=== PATIENT | female | born 1980 ===

== ENCOUNTER 2017-11-27 08:22 | Day surgery (SDC) | payer MEDICAID, OTHER ==
[~2017-11-27 08:22] MED LIST: Bupivacaine HCl 0.25% PF (10 ml) Inj ONE; Iohexol 240 (50 ml) ONE; Lidocaine Hydrochloride 5 ML INJ ONE; MethylPREDNISolone Depo 40 mg/ml Inj ONE
[2017-11-27] MEDS ORDERED: Midazolam 2 MG/2 ML VIAL ONE (09:51)
[2017-11-27] MEDS ORDERED: Propofol 10 mg/ml Inj (20 ML) ONE (10:00)
[2017-11-27 11:08] VITALS: TEMP 97.5; O2SAT 96
[2017-11-27 12:10] VITALS: BP 96/60; PULSE 69; RESP 16
--- NOTE | 2017-11-27 12:24 | OP ---
PROCEDURE DATE: PREOPERATIVE DIAGNOSIS: Thoracic radiculopathy, thoracic herniated disk. POSTOPERATIVE DIAGNOSIS: Thoracic radiculopathy, thoracic herniated disk. PROCEDURE: Thoracic epidural steroid injection T9-T10. X-RAY: Fluoroscopy of the spine. ANESTHESIA: MAC with local sedation. SURGEON: Nohemi Pugh MD COMPLICATIONS: None. BLOOD LOSS: 1 mL. BRIEF HISTORY AND INDICATIONS: The patient with thoracic pain. The patient is here for thoracic epidural steroid injection under fluoroscopic guidance. PROCEDURE IN DETAIL: The patient's chart was reviewed, informed consent was obtained. The patient was brought back to the procedure room, placed in prone position. Routine monitors were applied. The patient was prepped and draped in sterile fashion. Under fluoroscopy, it was examined and space was taken in AP view. A 27-gauge needle was used to infiltrate the skin subcutaneously with lidocaine 1% 2 mL subsequently. A 20-gauge epidural Tuohy needle was used to advance into the laminar space with loss of resistance technique to air. The needle position was confirmed in AP and lateral views. Omnipaque dye was injected showing good epidurogram. Subsequently, Depo-Medrol 80 mg with 2 mL of 1% lidocaine preservative-free was injected with intermittent aspiration. No heme or CSF was aspirated throughout. No paresthesias were listed throughout. The patient tolerated the procedure well. Vital signs remained stable. The patient reported reduction in pain post procedure. No sensory or motor deficits were noted. DISPOSITION: The patient was taken to the recovery room in stable condition. The patient was given instructions to follow up in two weeks and was discharged in stable condition. No events or complications. Nohemi Pugh MD
--- NOTE | 2017-11-27 13:49 | RAD ---
PROCEDURE: Intraoperative Fluoroscopy. HISTORY: THORACIC HERNIATED DISC FINDINGS: Fluoroscopic assistance was provided for thoracic epidural. Please refer to the operative report from MARY JO Pruitt. Total fluoroscopic time (continuous mode) utilized during the procedure: 13.0 seconds. Total exam DLP: 2.72 (mGy)
== END 2017-11-27 11:02 | disposition home or self-care (01) ==
LOC: C.SDS 08:22
PROVIDERS: ATTEND Anesthesiology Pain Medicine
DX: M51.14 Intervertebral disc disorders with radiculopathy, thoracic region (principal)
CPT/HCPCS: 62321; 76000; J1030; J2250; J2704; J3010; Q9966

== ENCOUNTER 2019-02-11 11:06 | Emergency (ER) | payer MEDICAID, OTHER ==
[2019-02-11 11:17] VITALS: RESP 20
[2019-02-11] MEDS ORDERED: Albuterol 0.083% Inhal Sol (2.5 mg/3 mL) UD IH STA ×2 (11:45→12:53)
[2019-02-11] MEDS ORDERED: Albuterol 0.083% Inhal Sol (2.5 mg/3 mL) UD ONE ×2 (11:57→13:33)
[2019-02-11 12:12] LABS: BASO # 0.1 K/uL (0.0-0.2); BASO % 0.7 % (0.0-2.0); EOS # 0.1 K/uL (0.0-0.7); EOS % 0.5 % (0.0-4.0); HEMOGLOBIN 16.3 g/dL (11.0-16.0); LYMPH # 3.1 K/uL (1.0-4.3); LYMPH % 30.5 % (20.0-40.0); MEAN CELL VOLUME 92.8 fL (81.0-99.0); MEAN CORPUSCULAR HEMOGLOBIN 31.3 pg (27.0-31.0); MEAN CORPUSCULAR HGB CONC 33.8 g/dL (33.0-37.0); MONO # 0.6 K/uL (0.0-0.8); MONO % 6.1 % (0.0-10.0); NEUT # 6.3 K/uL (1.8-7.0); NEUT % 62.2 % (50.0-75.0); NRBC % 0.1 % (0.0-2.0); RBC 5.22 Mil/uL (3.80-5.20); RED CELL DISTRIBUTION WIDTH 12.5 % (11.5-14.5); WHITE BLOOD COUNT 10.2 K/uL (4.8-10.8)
[2019-02-11 12:22] LABS: PROTHROMBIN TIME 10.8 SECONDS (9.7-12.2)
[2019-02-11 12:23] LABS: HCG,QUALITATIVE URINE NEGATIVE (NEGATIVE); SQUAMOUS EPITHIAL < 1 /hpf (0-5); URINE BILIRUBIN NEGATIVE (NEGATIVE); URINE BLOOD NEGATIVE (NEGATIVE); URINE CLARITY Clear (Clear); URINE COLOR Straw (YELLOW); URINE GLUCOSE (UA) 3+ mg/dL (Normal); URINE LEUKOCYTE ESTERASE NEG Leu/uL (Negative); URINE PROTEIN NEGATIVE (NEGATIVE); URINE UROBILINOGEN NORMAL mg/dL (0.2-1.0)
[2019-02-11 12:39] LABS: CK-MB 0.24 ng/mL (0.0-3.38)
--- NOTE | 2019-02-11 12:43 | RAD ---
HISTORY: SOB COMPARISON: Chest x-ray performed 09/26/17 TECHNIQUE: Chest, one view. FINDINGS: Examination limited by habitus and hypoinflation. LUNGS: No focal consolidation. Mild right hilar prominence. Please note that chest x-ray has limited sensitivity for the detection of pulmonary masses. PLEURA: No significant pleural effusion identified. No definite pneumothorax . CARDIOVASCULAR: Heart size appears within normal limits. No significant atherosclerotic calcification present. OSSEOUS STRUCTURES: No acute osseous abnormality identified. VISUALIZED UPPER ABDOMEN: Unremarkable. OTHER FINDINGS: None. IMPRESSION: Hypoinflation. No focal consolidation. Mild right hilar prominence.
[2019-02-11 13:04] LABS: ALB/GLOB RATIO 1.2 (1.0-2.1); ALBUMIN 4.4 g/dL (3.5-5.0); ALT/SGPT 102 U/L (9-52); AST/SGOT 51 U/L (14-36); BLOOD UREA NITROGEN 17 mg/dL (7-17); GFR NON-AFRICAN AMERICAN > 60
[2019-02-11] MEDS ORDERED: Sodium Chloride 0.9% 1,000 ML IV ONE (13:05)
[2019-02-11 13:06] VITALS: TEMP 98
[2019-02-11] MEDS ORDERED: Sodium Chloride 0.9% 250 ML IV ONE (13:15)
[2019-02-11] MEDS ORDERED: (Novolin R) Insulin Human Regular 100 units/ml vial IVP ONE (13:21)
[2019-02-11 13:34] LABS: VENOUS BLOOD GAS BASE EXCESS -2.9 mmol/L (0.0-2.0); VENOUS BLOOD GAS PCO2 41 mmHg (40-60); VENOUS BLOOD GAS PO2 38 mm/Hg (30-55); VENOUS BLOOD PH 7.35 (7.32-7.43)
[2019-02-11] MEDS ORDERED: (Novolin R) Insulin Human Regular 100 units/ml vial ONE (13:34)
--- NOTE | 2019-02-11 13:48 | C.PDOC ---
History Of Present Illness 38 y/o female presents to the ER complaining of productive cough, shortness of breath, and chest tightness x 5 days. She states she had lumbar epidural injections 5 days ago at hospital in [facility], and when she woke up she had the symptoms. She has previously had epidural injections twice before, and had cough the prior time. However symptoms this time are worse. She denies fever/chills, nausea/vomiting, abdominal pain. She has no PMhx of asthma. (+) family history of DM II. Time Seen by Provider: 02/11/19 11:25 Chief Complaint (Nursing): Chest Pain History Per: Patient History/Exam Limitations: no limitations Onset/Duration Of Symptoms: Days Current Symptoms Are (Timing): Still Present Severity: Moderate Past Medical History Reviewed: Historical Data, Nursing Documentation, Vital Signs Vital Signs: Last Vital Signs Temp 98 F 02/11/19 13:05 Pulse 86 02/11/19 13:05 Resp 20 02/11/19 13:05 BP 109/70 02/11/19 13:05 Pulse Ox 99 02/11/19 13:05 Primary Care Provider: Non [facility] Provider, - Medical History PMH: No Chronic Diseases Denies: Chronic Kidney Disease Surgical History: No Surg Hx Family History: States: No Known Family Hx - Social History Hx Tobacco Use: Yes Hx Alcohol Use: No Hx Substance Use: No - Immunization History Hx Tetanus Toxoid Vaccination: No Hx Influenza Vaccination: No Hx Pneumococcal Vaccination: No Review Of Systems Except As Marked, All Systems Reviewed And Found Negative. Constitutional: Negative for: Fever, Chills Cardiovascular: Positive for: Other (chest tightness) Respiratory: Positive for: Cough, Shortness of Breath Gastrointestinal: Negative for: Nausea, Vomiting Skin: Negative for: Rash Neurological: Negative for: Headache, Dizziness Physical Exam - Physical Exam Appears: Well, Non-toxic, No Acute Distress, Other (speaking in full sentences, coughing intermittently) Skin: Normal Color, Warm, Dry Head: Normacephalic Eye(s): bilateral: Normal Inspection Oral Mucosa: Moist Neck: Supple Chest: Symmetrical Cardiovascular: Rhythm Regular Respiratory: No Accessory Muscle Use, No Rales, No Rhonchi, Wheezing (difuse expiratory wheeing bilaterally ) Gastrointestinal/Abdominal: Normal Exam, Bowel Sounds, Soft, No Tenderness Extremity: Normal ROM, No Pedal Edema, No Calf Tenderness Pulses: Left Dorsalis Pedis: Normal, Right Dorsalis Pedis: Normal Neurological/Psych: Oriented x3 ED Course And Treatment - Laboratory Results Result Diagrams: 02/11/19 12:05 02/11/19 12:05 Lab Results: pO2 38 mm/Hg (30-55) 02/11/19 13:30 VBG pH 7.35 (7.32-7.43) 02/11/19 13:30 VBG pCO2 41 mmHg (40-60) 02/11/19 13:30 VBG HCO3 21.9 mmol/L 02/11/19 13:30 VBG Total CO2 23.9 mmol/L (22-28) 02/11/19 13:30 VBG O2 Sat (Calc) 79.4 % (40-65) H 02/11/19 13:30 VBG Base Excess -2.9 mmol/L (0.0-2.0) L 02/11/19 13:30 VBG Potassium 4.0 mmol/L (3.6-5.2) 02/11/19 13:30 Sodium 131.0 mmol/l (132-148) L 02/11/19 13:30 Chloride 96.0 mmol/L (98-107) L 02/11/19 13:30 Glucose 633 mg/dl (65-105) H* 02/11/19 13:30 Lactate 2.7 mmol/L (0.7-2.1) H 02/11/19 13:30 Crit Value Called To 02/11/19 13:30 Crit Value Called By Efrain steele,hospital nurse 02/11/19 13:30 Crit Value Read Back Y 02/11/19 13:30 Blood Gas Notified Time 1335 02/11/19 13:30 PT 10.8 SECONDS (9.7-12.2) 02/11/19 12:05 INR 1.0 02/11/19 12:05 APTT 26.0 SECONDS (21-34) 02/11/19 12:05 D-Dimer, Quantitative 305 ng/mlDDU (0-243) H 02/11/19 12:05 Troponin I < 0.0120 ng/mL (0.00-0.120) 02/11/19 12:05 Total Bilirubin 0.5 mg/dL (0.2-1.3) 02/11/19 12:05 AST 51 U/L (14-36) H 02/11/19 12:05 ALT 102 U/L (9-52) H 02/11/19 12:05 Alkaline Phosphatase 149 U/L (38-126) H 02/11/19 12:05 Total Protein 8.0 g/dL (6.3-8.3) 02/11/19 12:05 Albumin 4.4 g/dL (3.5-5.0) 02/11/19 12:05 Globulin 3.7 gm/dL (2.2-3.9) 02/11/19 12:05 Albumin/Globulin Ratio 1.2 (1.0-2.1) 02/11/19 12:05 Urine Color Straw (YELLOW) 02/11/19 12:05 Urine Clarity Clear (Clear) 02/11/19 12:05 Urine pH 6.0 (5.0-8.0) 02/11/19 12:05 Ur Specific Hudson 1.030 (1.003-1.030) 02/11/19 12:05 Urine Protein Negative mg/dL (NEGATIVE) 02/11/19 12:05 Urine Glucose (UA) 3+ mg/dL (Normal) H 02/11/19 12:05 Urine Ketones Negative mg/dL (NEGATIVE) 02/11/19 12:05 Urine Blood Negative (NEGATIVE) 02/11/19 12:05 Urine Nitrate Negative (NEGATIVE) 02/11/19 12:05 Urine Bilirubin Negative (NEGATIVE) 02/11/19 12:05 Urine Urobilinogen Normal mg/dL (0.2-1.0) 02/11/19 12:05 Ur Leukocyte Esterase Neg Camille/uL (Negative) 02/11/19 12:05 Urine RBC (Auto) < 1 /hpf (0-3) 02/11/19 12:05 Ur Squamous Epith Cells < 1 /hpf (0-5) 02/11/19 12:05 Urine HCG, Qual Negative (NEGATIVE) 02/11/19 12:05 Urine HCG, Qual Negative (NEGATIVE) 02/11/19 12:05 ECG: Interpreted By Me, Viewed By Me ECG Rhythm: Sinus Rhythm Interpretation Of ECG: NSR with normal axises and no acute ST/T wave changes Rate From EC O2 Sat by Pulse Oximetry: 99 (RA) Pulse Ox Interpretation: Normal Progress Note: Labs,UA,HCG Qual,CXR, and CT-Angio Chest ordered.Patient treated with Insulin IV, Albuterol, Solu-Medrol IV, and IV Fluids. Disposition Counseled Patient/Family Regarding: Studies Performed, Diagnosis, Need For Followup, Rx Given - Disposition Referrals: [facility] [Outside] Disposition: AGAINST MEDICAL ADVICE Disposition Time: 14:35 Condition: STABLE Additional Instructions: YOU ARE SIGNING OUT AGAINST MY MEDICAL ADVICE. PLEASE RETURN TO THE ER FOR FURTHER WORKUP SOON POSSIBLE USE MEDICATIONS DIRECTED DRINK PLENTY OF WATER Prescriptions: Albuterol HFA [Ventolin HFA 90 mcg/actuation (8 g)] 0.09 mg IH Q4 PRN #1 puff PRN Reason: Wheezing metFORMIN [glucOPHAGE] 500 mg PO BID PRN #60 tab PRN Reason: diabetes Instructions: Wheezing, Diabetes Type 2 (DC) Forms: [employer] (Monegasque), (AMA) Informed Refusal Print Language: SLOVAK - Clinical Impression Clinical Impression: Bronchospasm, Diabetes mellitus, new onset, Left against medical advice - Scribe Statement The provider has reviewed the documentation as recorded by the Bertibe Elyssa Mathis Provider Attestation: All medical record entries made by the Scribe were at my direction and personally dictated by me. I have reviewed the chart and agree that the record accurately reflects my personal performance of the history, physical exam, medical decision making, and the department course for this patient. I have also personally directed, reviewed, and agree with the discharge instructions and disposition.
[2019-02-11 14:28] VITALS: BP 115/61; PULSE 80
[2019-02-11 14:35] VITALS: O2SAT 99
== END 2019-02-11 14:51 | disposition left against medical advice (07) ==
LOC: C.ER 11:06
DX: J98.01 Acute bronchospasm (principal); E11.9 Type 2 diabetes mellitus without complications
CPT/HCPCS: 71045; 80053; 81001; 81025; 82009; 82550; 82553; 82803; 82948; 83930; 84484; 84703; 85025; 85378; 85610; 85730; 96361; 96374; 96375; 99285; J2930; J7030

== ENCOUNTER 2019-02-11 16:51 | Emergency (ER) | payer SELFPAY ==
[2019-02-11] MEDS ORDERED: Sodium Chloride 0.9% 1,000 ML IV ONE (18:09)
--- NOTE | 2019-02-11 18:14 | C.PDOC ---
History Of Present Illness Patient returns to ED, signed out AMA earlier because she had to sampler pickup her child from school. Patient has been SOB with wheezing and cough since saturday, after having epidural injection of LS spine. Earlier blood work showed hyperglycemia and elevated D-dimer. Patient needs CTA chest and control of blood sugar. Time Seen by Provider: 02/11/19 18:08 Chief Complaint (Nursing): Shortness Of Breath History Per: Patient History/Exam Limitations: no limitations Onset/Duration Of Symptoms: Days Current Symptoms Are (Timing): Better Severity: Mild Past Medical History Reviewed: Historical Data, Nursing Documentation, Vital Signs Vital Signs: Last Vital Signs Temp 98.6 F 02/11/19 18:09 Pulse 82 02/11/19 18:09 Resp 18 02/11/19 18:09 BP 134/85 02/11/19 18:09 Pulse Ox 98 02/11/19 18:09 Primary Care Provider: Non [facility] Provider, - Medical History PMH: No Chronic Diseases Denies: Chronic Kidney Disease Family History: States: Diabetes (mother) - Social History Hx Tobacco Use: Yes Hx Alcohol Use: No Hx Substance Use: No - Immunization History Hx Tetanus Toxoid Vaccination: No Hx Influenza Vaccination: No Hx Pneumococcal Vaccination: No Review Of Systems Constitutional: Negative for: Fever, Chills Cardiovascular: Negative for: Chest Pain, Palpitations Respiratory: Positive for: Cough, Shortness of Breath, Pleuritic Pain (chest pain), Wheezing Gastrointestinal: Negative for: Nausea, Vomiting, Abdominal Pain, Diarrhea Genitourinary: Negative for: Dysuria, Hematuria Skin: Negative for: Rash Neurological: Negative for: Headache, Dizziness Physical Exam - Physical Exam Appears: Well, Non-toxic, No Acute Distress, Other (speaking in full sentences) Skin: Normal Color, Warm, Dry Oral Mucosa: Moist Cardiovascular: Rhythm Regular Respiratory: No Accessory Muscle Use, No Rales, No Rhonchi, Wheezing (mild expiratory wheezing B/L ) Gastrointestinal/Abdominal: Normal Exam, Bowel Sounds, Soft, No Tenderness Extremity: Normal ROM, No Pedal Edema Pulses: Left Dorsalis Pedis: Normal, Right Dorsalis Pedis: Normal Neurological/Psych: Oriented x3 ED Course And Treatment O2 Sat by Pulse Oximetry: 98 (RA) Pulse Ox Interpretation: Normal Progress Note: Prior blood work done today showed elevated d-dimer and hypergly cemia + elevated lactate. IV NS bolus, IV insulin, repeat VBG and CTA chest ordered. Disposition - Disposition Disposition Time: 19:00 Condition: STABLE Forms: [employer] (Sami) - Clinical Impression Clinical Impression: Dyspnea, Hyperglycemia Physician Patient Turnover Patient Signed Over To: Macy Blair Handoff Comments: pending CTA chest, repeat VBG and accucheck, reassessment
[2019-02-11] MEDS ORDERED: Albuterol 0.083% Inhal Sol (2.5 mg/3 mL) UD IH STA (18:24)
[2019-02-11] MEDS ORDERED: (Novolin R) Insulin Human Regular 100 units/ml vial IVP ONE ×2 (18:27→21:16)
[2019-02-11] MEDS ORDERED: Sodium Chloride 0.9% 1,000 ML ONE (19:03)
[2019-02-11] MEDS ORDERED: (Novolin R) Insulin Human Regular 100 units/ml vial ONE ×3 (19:03→21:51)
[2019-02-11] MEDS ORDERED: Albuterol 0.083% Inhal Sol (2.5 mg/3 mL) UD ONE (19:03)
[2019-02-11] MEDS ORDERED: Iodixanol 320 MG/ML 100 ML BOTTLE IV ONE (19:19)
[2019-02-11 19:30] LABS: VENOUS BLOOD GAS BASE EXCESS -7.8 mmol/L (0.0-2.0); VENOUS BLOOD GAS PCO2 35 mmHg (40-60); VENOUS BLOOD GAS PO2 51 mm/Hg (30-55); VENOUS BLOOD PH 7.31 (7.32-7.43)
[2019-02-11] MEDS ORDERED: Sodium Chloride 0.9% 2,000 ML IV ONE (19:31)
[2019-02-11 23:36] VITALS: BP 149/80; PULSE 90; RESP 18; TEMP 98.3; O2SAT 100
--- NOTE | 2019-02-12 10:26 | CT ---
Date of service: 02/11/2019 CTA chest PE protocol Indication: elevated d-dimer, r/o pe Technique: Contiguous axial images were obtained through the chest with intravenous contrast enhancement. Sagittal and coronal reconstructions were generated and reviewed. This CT exam was performed using 1 or more of the following dose reduction techniques: Automated exposure control, adjustment of the MAA and/or kV according to patient size, and/or use of iterative reconstruction technique. IV contrast: 100 mL Visipaque 320 IV Radiation dose (DLP): 532.11 MGy-cm. Comparison: Chest x-ray performed 02/11/19 Findings: Visualized portions of the inferior thyroid gland appear unremarkable. The mediastinal and hilar vascular structures appear within normal limits. The heart appears within normal limits of size. Sub cm mediastinal/prevascular lymph nodes, nonspecific. There is suboptimal opacification of the pulmonary arteries due to missed bolus of the intravenous contrast limiting evaluation for pulmonary embolus. Given this limitation, there are no visible intraluminal filling defects within the central pulmonary arteries to suggest central pulmonary embolism. No focal consolidation. No pleural effusion. No pneumothorax. No suspicious pulmonary nodules measuring greater than 5 mm. Small hiatal hernia/distal esophageal wall thickening. Limited visualized portions of the upper abdomen: Hypoattenuation of the liver compatible with hepatic steatosis. Degenerative changes of the spine. Impression: There is suboptimal opacification of the pulmonary arteries due to missed bolus of the intravenous contrast limiting evaluation for pulmonary embolus. Given this limitation, there are no visible intraluminal filling defects within the central pulmonary arteries to suggest central pulmonary embolism. Hepatic steatosis. Preliminary impression was provided by [employer]. Study marked for PA review.
--- NOTE | 2019-02-12 10:57 | CARD ---
APPROVED REPORT Date of service: 02/11/2019 EKG Measurement Heart [id number] <Conclusion> Normal sinus rhythm Possible Left atrial enlargement Possible Anterior infarct, age undetermined Abnormal ECG
== END 2019-02-11 23:37 | disposition home or self-care (01) ==
LOC: C.ER 16:51
DX: R06.00 Dyspnea, unspecified (principal); R73.9 Hyperglycemia, unspecified
CPT/HCPCS: 71275; 82803; 82948; 93005; 96374; 96376; 99285; J7030; Q9967